=== PATIENT | female | born 1955 | race Caucasian/White ===

== ENCOUNTER 2021-02-19 22:16 | Inpatient (IN) | payer SELFPAY ==
[~2021-02-19] VITALS: Ht 162.6 cm; Wt 60.2 kg
[2021-02-19] MEDS ORDERED: TYLENOL EXTRA500 MG PO (22:42)
--- NOTE | 2021-02-20 02:35 | NUR ---
PT TO FLOOR VIA STRETCHER FROM ED WITH PSYCH SPECIALIST AT APPROX 0200. ALERT AND ORIENTED. PT UNABLE TO TRANSFER SELF DUE TO DIZZINESS AND NAUSEA. 3PA FROM STRETCHER TO BED. PT GIORGI WELL. ORDERS RECEIVED. VS AND ASSESSMENT COMPLETE. PRN FOR DIZZINESS ADMINISTERED PER EMAR WITH SIPS OF WATER. PT REPORTS NAUSEA BUT DOES NOT PRN N/V AT THIS TIME. IVF INFUSING ORDERED. PT ORIENTED TO ROOM AND NURSE CALL LIGHT. PT VERBALIZES UNDERSTANDING. DAUGHTER AT BEDSIDE. NO QUESTIONS OR CONCERNS AT THIS TIME. BED ALARM FOR SAFETY.
--- NOTE | 2021-02-20 03:32 | NUR ---
CALL LIGHT ANSWERED. PT REPORTS FEELING NAUSEOUS WITH "JITTERY LEGS" AND LEFT SIDE PAIN. VS WNL. PT DENIES CHEST PAIN OR SOB. REFUSES PRN FOR N/V. BELIEVES LEFT SIDE PAIN COULD BE FROM "DRY HEAVES". SBA TO BSC TO ATTEMPT TO VOID WITH NO RESULTS. PT DID HAVE [employer] BOWEL MOVEMENT AND SCANT AMOUNT EMESIS WHILE ON BSC. PT ABLE TO DO OWN OSCAR CARE. SBA BACK TO BED. GAIT WEAK AND UNSTEADY. ASSISTED PT TO REPOSITION IN BED WITH PILLOWS FOR COMFORT. NO FURTHER NEEDS AT THIS TIME. DAUGHTER REMAINS IN ROOM. BED ALARM FOR SAFETY. CALL LIGHT IN REACH.
--- NOTE | 2021-02-20 05:00 | NUR ---
PT RESTING ON RIGHT SIDE. EYES CLOSED. RESPIRATIONS EVEN. IVF INFUSING. BED ALARM FOR SAFETY. CALL LIGHT IN REACH.
--- NOTE | 2021-02-20 06:47 | NUR ---
PT RESTING WITH EYES CLOSED UPON ENTERING ROOM. AWAKENS EASILY. VS AND I&O OBTAINED. PT REPORTS "FEELING BETTER" AND WAS ABLE TO SLEEP FOR A FEW HOURS. SBA TO BSC TO ATTEMPT TO VOID WITH NO RESULTS. GAIT WEAK AND UNSTEADY. BACK TO BED. BLADDER SCANNED FOR APPROX 243 ML. PRN FOR NAUSEA ADMINISTERED PER EMAR. PT DENIES FURTHER NEEDS. CALL LIGHT IN REACH. BED ALARM FOR SAFETY.
--- NOTE | 2021-02-20 07:02 | NUR ---
CALL LIGHT ON. pt REPORTED "I THREW UP A LITTLE", IN TO ASSESS. pt HAD SCANT EMESIS, NOT ENOUGH TO MEASURE. OFFERED A WARM WET CLOTH, pt STATED "I'M DOING OKAY RIGHT NOW" NO FURTHER NEEDS. CALL LIGHT WITHIN REACH. PRIMARY RN UPDATED.
--- NOTE | 2021-02-20 07:15 | NUR ---
THIS RN RECEIVED REPORT FROM [facility]. PT RESTING AT THIS TIME. THIS RN WILL NEED TO HAVE PT VOID
--- NOTE | 2021-02-20 08:00 | NUR ---
THIS RN CALLED TO NOTIFY MD ABOUT THE COLOR IN TUBING. MD ASKED THIS RN TO MANUAL FLUSH CATHETER AND LOOK FOR CLOTS AND TO CONTINUE CBI AT THIS TIME- MD EXPECTS COLOR OF TUBING TO BE ABOUT A CRANBERRY IN COLOR.
--- NOTE | 2021-02-20 08:59 | NUR ---
PATIENT SITTING UP IN BED EATING BREAKFAST. VITALS CHARTED. PATIENT SAYS SHE IS NOT FEELING WELL ENOUGH TO GET UP TO CHAIR AT THIS TIME. CALL LIGHT IN REACH. BED ALARM ON. NO FURTHER NEEDS AT THIS TIME.
--- NOTE | 2021-02-20 09:30 | NUR ---
THIS RN IN PTS ROOM TO GIVE ALMA MEDS. PT ATTEMPTED TO EAT BUT NOT ABLE TO GET MUCH DOWN. PT STATES THAT SHE IS NAUSEOUS BUT DOES NOT WANT ANY MEDS FOR NAUSEA AT THIS TIME. THIS RN ASSISTED TO TO THE BEDSIDE COMMODE TO HELP HER PEE. PT WOBBLY GETTING TO COMMODE BUT WAS ABLE TO VOID 250ML AND PASS GAS. PT STATES THAT SHE IS DIZZY WHEN GETTING BACK TO BED, THIS RN TO PRVIDE PT WITH MED. IN ROOM
--- NOTE | 2021-02-20 09:40 | NUR ---
Spoke with Sailaja by phone as she is ill with covid. She states she lives in [place] in a 1 story home. She lives with her friend, Son. Her son lives nearby and will assist her. She has a walker and a cane she does not use. Pt states she has never applied for medicare or SS. She was given paperwork and her daughter is assisting to apply for Medicare. Pt states she has been very ill and is tired. She states she has not a Dr. in years. She would like a Dr. [facility] as she brings a friend here. Will check for appts to [facility].
--- NOTE | 2021-02-20 10:15 | NUR ---
THIS RN IN PTS ROOM TO GIVE MORNING MEDS. THIS RN NOTED THAT PTS COLOR IN TUBING WAS LIGHT CRANBERRY COLOR WITH NO CLOTS NOTED. PT DENIES PAIN. THIS RN DISCUSSED MEDS WITH PTS SON WHO TRANSLATED TO PT. NO OTHER NEEDS STATED.
--- NOTE | 2021-02-20 11:00 | NUR ---
THIS RN IN PTS ROOM TO GIVE PT ANOTHER BOLUS OF FLUID. PT STATES THAT SHE IS "QUEASY" BUT DOES NOT WANT ANY MEDS AT THIS TIME.
--- NOTE | 2021-02-20 12:15 | NUR ---
this rn to check on pt. pt appears to be resting comfortably at this time
--- NOTE | 2021-02-20 13:30 | NUR ---
this rn in pts room to give pt prn nausea meds. pt laying in bed and appears to be resting comfortably. pt states that she is felling "queasy" but it is kind of tolerable- pt is now willing to try an antinausea med- compazine. this rn then to do orthostatics- see vitals. pt then back to bed with herb from physical therapy- pt required 2 per assist back to bed after sitting on commode and unable to void.
--- NOTE | 2021-02-20 14:00 | NUR ---
this rn still in room. pt now vomiting- vomited 225ml. this rn to give pt 12.5mg phenergan. pt stopped heaving and is now very drowsy. herb from physcial therapy to come back. due to pt unable to void this rn bladder scanned pt. >477ml in bladder at this time.
--- NOTE | 2021-02-20 14:17 | NUR ---
DUE TO PRECAUTIONS, I AM UNABLE TO VISIT PT IN PERSON. WILL BE AVAILABLE TO CARE FOR HER NEEDED
--- NOTE | 2021-02-20 15:15 | NUR ---
THIS RN ROOM WITH 3 [facility] NURSING STUDENTS TO STRAIGHT CATH PT. TARA [facility] ALUMNI RELATIONS COORDINATOR ABLE TO USE SERILE TECHNIQUE UNDER SUPERVISION OF THIS RN. ABLE TO GET 500ML OUT OF BLADDER. PT TOELRATED WELL.
--- NOTE | 2021-02-20 16:11 | NUR ---
Spoke with pt from [facility]. Pt scheduled with Dr. Grosmsan on Mar 05 at 13:30.
--- NOTE | 2021-02-20 17:13 | NUR ---
PATIENT UP TO BSC AND BACK TO BED, 1PA. VITALS AND I&O'S CHARTED. HIGH BLOOD PRESSURE, RN NOTIFIED. CALL LIGHT IN REACH. NO FURTHER NEEDS AT THIS TIME.
--- NOTE | 2021-02-20 17:30 | NUR ---
[facility] PT STATES THAT SO FAR HER NAUSEA IS UNDER CONTROL BUT IS STILL DIZZY.
--- NOTE | 2021-02-20 19:21 | NUR ---
PT LAYING IN BED WITH EYES OPEN, NO NEEDS. CALL LIGHT IN REACH.
--- NOTE | 2021-02-20 22:00 | EKG ---
[facility] [address] [facility] [place] [address] Signed Sinus bradycardia Moderate voltage criteria for LVH, may be normal variant ( Sokolow-Pope , [place] product ) T wave abnormality, consider inferior ischemia Abnormal ECG No previous ECGs available Confirmed by LISA JOHNSON DO ([id number]) on 02/20/2021 9:59:59 PM Electronically Signed By: LISA JOHNSON DO 02/[id number] PATIENT NAME: ITZELBIB DANNY Electrocardiogram DATE OF : 51 PHYSICIAN: LISA JOHNSON DO REPORT #: [id number] REPORT IS CONFIDENTIAL AND NOT TO BE RELEASED WITHOUT AUTHORIZATION
--- NOTE | 2021-02-20 22:23 | NUR ---
IN TO SEE PT. SCHEDULED MEDICATIONS GIVEN. ASSISTED PT TO BSC. FRESH WATER PROVIDED, PT IN BED. ALERT AND ORIETNED X 4. VS OBTAINED. I AND O'S COMPLETED. ASSESMENT COMPLETED. NO OTHER NEEDS AT THIS TIME. CALL LIGHT IN REACH.
--- NOTE | 2021-02-20 23:45 | NUR ---
WENT IN TO THE ROOM AND V/S TAKEN PER PRIMARY RN SHRAVAN AND CHARTED BY HARSH COHEN. 2 PILLOWS PROVIDED. NO OTHER NEEDS AT THIS TIME.
--- NOTE | 2021-02-21 00:58 | NUR ---
PT RESTING WITH EYES CLOSED. EQUAL CHEST RISE AND FALL. TELE HR 57. CALL LIGHT IN REACH.
--- NOTE | 2021-02-21 02:07 | NUR ---
IN TO SEE PT. VSS OBTAINED. PT DENIES PT. P T RESTING WITH EYES CLOSED. NO OTHER NEEDS. CALL LIGHT IN REACH.
--- NOTE | 2021-02-21 03:15 | NUR ---
IN TO SEE PT. PT RESTING WITH EYES CLOSED. HR 70 PER MONITOR. CALL LIGHT IN REACH.
--- NOTE | 2021-02-21 05:35 | NUR ---
IN TO SEE PT. PT RESTING WITH EYES CLOSED. EASILY WAKES BY VOICE. VSS COMPLETED. ASSITED PT UP TO BSC. PT CONTINUES TO HAVE C/O DIZZINESS WITH ACTIVITY AND AT REST WITH SOME IMPROVMENT. VSS COMPLETED. HYDRALAZINE GIVEN PER ORDER. I AND O'S COMPLETED. ASSITED PT BACK TO BED. ASSESSMENT COMPLETED. NO OTHER NEEDS. CALL LIGHT IN REACH.
--- NOTE | 2021-02-21 06:25 | NUR ---
ALERT AND ORIENTED X 3. REG DIET. RA. NO COUGH NOTED. COVID PERCAUTIONS. 1 PA TO BSC. PT, TELE #1. DIZZINESS. ELEVATED SBP GREATER THAN 185 PRN MEDICATION GIVEN PER ORDER X 2, FLUIDS INFUSING, AM LABS. VOIDING QS.
--- NOTE | 2021-02-21 07:30 | NUR ---
Shift report received from HARSH Porter/Deisi pt resting safely in bed w/ call light in reach, no needs at this time
--- NOTE | 2021-02-21 10:00 | NUR ---
Pt sitting up in bed safely w/ call light in reach. Morning assesment complete, scheduled meds given, and a new bag of IV fluids hung and infusing per provider order. Pt c/o dizziness/nausea, PRN meds given per request. Orthostatic BP completed, no further needs at this time
--- NOTE | 2021-02-21 10:45 | NUR ---
Pt sleeping and not awakened. Per 829 meeting no plan for dc today.
--- NOTE | 2021-02-21 11:15 | NUR ---
PT IS STILL SUFFERING WITH MOMENTS OF VERTIGO AND IS ALSO COVID POSITIVE. PRECAUTIONS HAVE KEPT ME FROM VISITING IN PERSON, HARSH MARTINEZ WILL INFORM PT I AM AVAILABLE BY PHONE IF NEEDED
--- NOTE | 2021-02-21 12:00 | NUR ---
Pt called for assistance, SBA to BSC, pt voided, and now back in bed sitting up safely w/ call light in reach, eating lunch, no further needs at this time
--- NOTE | 2021-02-21 14:00 | NUR ---
Pt sitting up in bed w/ call light in reach, scheduled meds given per provider order, pt denies any needs at this time
[2021-02-21] MEDS ORDERED: IBUPROFEN200 MG PO (14:43)
--- NOTE | 2021-02-21 14:44 | NUR ---
MED REC COMPLETED BY PHARMACY
--- NOTE | 2021-02-21 14:58 | NUR ---
PT RESTING IN BED. RN ANASTACIO AWARE OF HIGH BP. CALL LIGHT WITHIN REACH, NO FURTHER NEEDS AT THIS TIME.
--- NOTE | 2021-02-21 15:00 | NUR ---
STEAMER GUM CANDY reported pt's BP elevated, PRN medication given per provider order will recheck BP in an hour
--- NOTE | 2021-02-21 16:05 | NUR ---
BP recehcked still hypertensive, provider notified, new orders for BP meds. Pt sitting up in bed safely w/ call light in reach, denies any needs at this time
--- NOTE | 2021-02-21 18:00 | NUR ---
Pt sitting up in bed safely w/ call light in reach, pt denies any needs at this time.
--- NOTE | 2021-02-21 18:53 | NUR ---
PT SLEEPING IN BED. CALL LIGHT WITHIN REACH, NO FURTHER NEEDS AT THIS TIME.
--- NOTE | 2021-02-21 19:30 | NUR ---
IN TO SEE PT. PT AWAKE AND ALERT IN BED. C/O 5/10 PAIN TO RIGHT SHOULDER. NO OTHER NEEDS AT THIS TIME. CALL LIGHT IN REACH.
--- NOTE | 2021-02-21 20:10 | NUR ---
IN TO ASSIST PT TO THE BSC, I&Os DONE, PT ASKING ABOUT MEDS FOR DIZZYNESS, RN INFORMED, NO FURTHER NEEDS
--- NOTE | 2021-02-21 20:45 | NUR ---
NEW ORDER RECIVED FROM MD. VERIFIED ORDER USING VORB METHOD.
--- NOTE | 2021-02-21 22:11 | NUR ---
VS AND I AND O'S COMPLERTED. ASSITED PT TO BSC AND BACK TO BED. SCHAED MEDICATIONS GIVEN. PT RENNY C/O NAUSEA, PRN PHENAGREN GIVEN PER ORDER. PT C/O CONGESTION, PRN SUDEFED GIVE, AND PAIN REPORT BY PT 06/19 TO RIGHT SHOULDER, PRN TYLENOL GIVEN PER ORDER. NO OTHER NEEDS. CALL LIGHT IN REACH.
--- NOTE | 2021-02-21 23:00 | NUR ---
UPDATE PROVIDED TO FAMILY.
--- NOTE | 2021-02-21 23:16 | NUR ---
ASSISTED PT TO BSC, 1PA FWW. PT C/O DIZZINESS WHILE STANDING AND SITTING, PT PROVIDED SELF OSCAR-CARE, WASHED HANDS WITH SOAPY WASH CLOTH. PT BACK IN BED, CALL LIGHT WITHIN REACH. PT VOIDED 800 CC OF URINE.
--- NOTE | 2021-02-21 23:40 | NUR ---
IN TO SEE PT, PT STATES " NAUSEA IS IMPROVING." NO NEEDS AT THIS TIME. CALL LIGHT IN REACH.
--- NOTE | 2021-02-22 02:31 | NUR ---
PT SLEEPING WITH EYES CLOSED, HR 62 PER MONITOR. NO NEEDS, CALL LIGHT IN REACH.
--- NOTE | 2021-02-22 04:52 | NUR ---
REG DIET. RA. IVF INFUSING. 1PA BSC. NAUSEA, PRN MEDICATION GIVEN. WORKING WITH PT. TELE 1 HR 60'S. PRN MEDICATION FOR DIZINESS. A AND O X 4.
--- NOTE | 2021-02-22 05:49 | NUR ---
AISSITED PT TO BSC AND BACK TO BED. PT WITH C/O NAUSEA, PRN COMPAZINE GIVE ORDERED. PAT WITH GENERALIZED PAIN 08/10, PRN TYLENOL GIVEN PER ORDER. I AND O'S AND VSS COMPLETED. FRESH ICE WATER PROVIDED. NO OTHER NEEDS, CALL LIGHT IN REACH.
--- NOTE | 2021-02-22 08:30 | NUR ---
REPORT RECEIVED FROM NIGHT RN AND PT. CARE RESUMED. PT. IS ALERT AND ORIENTED TO ALL. SHE DENIES PAIN OR NAUSEA. PT. IV SITE WNL AND FLUSHES WELL. REPORTS SHE WAS NOT DIZZY WHEN SITTING UP. LUNGS DIM. IN RLL. SHE IS ON R.A. AND O2 SAT IS 95%. DISCUSSED MEDS, SAFETY AND POC. LEFT RESTING WITH CALL LIGHT IN REACH.
--- NOTE | 2021-02-22 10:50 | NUR ---
Feeling better, but has dizzy episodes. Awaiting MRI.
--- NOTE | 2021-02-22 11:11 | NUR ---
ROUNDING ON PT. SHE REPORTS MODERATE DIZZINESS WHEN CHANGING POSITION. DENIES NEEDS AT THIS TIME.
--- NOTE | 2021-02-22 13:16 | NUR ---
PT USED CALL LIGHT APPROPRIATELY FOR ASSISTANCE TO BSC. 1PA TO BSC AND VOIDED. PT. REPORTS DIZZINESS AT EOB. LEFT RESTING WITH CALL LIGHT IN REACH.
--- NOTE | 2021-02-22 14:26 | NUR ---
PT SCHEDULED TO HAVE MRI TODAY, STILL ON PRECAUTIONS. WILL FOLLOW
--- NOTE | 2021-02-22 19:42 | NUR ---
IN TO ASSIST PT WITH BSC NEEDS, PT BACK TO BED, NO FURTHEN NEEDS
--- NOTE | 2021-02-22 22:05 | NUR ---
IN BED, C/O LIGHHEADNESS AND DIZZINESS WHEN MOVING. SL PATENT. IN BED, DENIES CP, TELE#[address]
--- NOTE | 2021-02-22 22:12 | NUR ---
UP TO BSC. VOIDED.1PA/ C/O DIZZINESS, BACK TOP BED, TOLERATED FAIR. MEDICATED TYLENOL AND OXYCONTIN OPER GENERALIZED PAIN. COOP WITH ASSESSMENT. ON R.A AIR. LUNGS CRACKLES AT BASES. NO SOB. ON REPIRATORY ISOLATION. TOLERATING LIQUIDS WELL. NO C/O CP . TELE#[address]
--- NOTE | 2021-02-22 23:13 | NUR ---
RESP ISOLATION, ON ROOM AIR, HOB ELEVATED, EYES CLOSED, NO DISTRESS, TELE#[address] SR AT THIS TIME
--- NOTE | 2021-02-23 02:53 | NUR ---
resting, no distress, eyes closed, tele/cpox #1 sats 94% room air, Sinus Rhythm. call light and fluids at bedside, on resp isolation.
--- NOTE | 2021-02-23 04:27 | NUR ---
Pt on respiratory isolation. On room air. tele#1 SR/SVR, denies CP,SOB, CONTINUES TO C/O DIZZINESS AND LIGHTHEADNESS WITH MOVEMENT OR WHEN UP TO BSC. TOLERATES WELL, WAS MEDICATED X1 PER H/A WITH GOOD PAIN RELIEF. NO EMESIS. HAS VOIDED qs, TOLERATING FLUIDS AND DIET, SL PATENT. FLUIDS AND CALL LIGHT AT BEDSIDE
--- NOTE | 2021-02-23 05:46 | NUR ---
UP TO BSC, 1PA, VOIDED, BACK TO BED. C/O PAIN8./10 AND FEELING LIGHTHEADED WITH MOVEMENT. MEDICATED WITH TYLENOL 650MG AND OXYCODONE 5MG PO. HOB ELEVATYED, ON ROOM AIR. TOLERATING LIQUIDS WELL, CALL LIGHT AT HANDS REACH
--- NOTE | 2021-02-23 09:36 | NUR ---
PT UP TO BATHROOM WITH ONE PERSON ASSIST AND 4WW. NOW UP IN CHAIR. CALL LIGHT WITHIN REACH. AND VISIBLE FROM NURSES STATION.
--- NOTE | 2021-02-23 14:11 | NUR ---
PT ABLE TO COMPLETE ORTHOSTATIC VITALS THAT WERE NEGATIVE. SHE REPORTS NAUSEA AND WEAK LEGS WITH STANDING. REFUSES ANTIEMETIC MEDS AT THIS TIME. BROUGHT FRESH WATER AND WET CLOTH. LEFT RESTING WITH CALL LIGHT IN REACH.
--- NOTE | 2021-02-23 19:34 | NUR ---
Continues on Respiratory Isolation, eyes closed, no distress, call light and fluids at bedside
--- NOTE | 2021-02-23 21:09 | NUR ---
pt on respiratory isolation, hob elevated, on room air. lungs clear, dim at bases. no sob with exertion. tele/cpox#1 in p[lace, sats 96%. no bm today. sl patent. tolerating fluids, no emesis, still c/o lighheadness and generalized pain. medicated with oxycodone 5mg and 2 tylenol 650mg. fresh fluids and puding given on requests. cooperative with assessment. denies needing to void at this time, will ask again in one -two hours
--- NOTE | 2021-02-24 01:04 | NUR ---
resting, eyes closed, no distress, on room air, tele#[address] SR, sats 96% room air. call light and fludis at bedside
--- NOTE | 2021-02-24 03:44 | NUR ---
Resting, eyes closed, no distress, on room air. cont on resp isolation precautions. call light and fluids at bedside
--- NOTE | 2021-02-24 05:37 | NUR ---
On room air. lung dim at bases, fine crackles, denies cough at this time, coantinues cintia/o lightheadness and dizzines with movement but improved. was medicated with Oxycodone, Tylenol per pain and with Melatonin per insomnia, very effective, has slept all this shift. Up to BSC voiding dark yellow urine. Back to be, HOB elevated, tolerating liquids well, no emesis, sl patent. Cont on Respiratory isolation precautions.Tele#1 SR to eugenio, denies CP or SOB. cpox 96%.
--- NOTE | 2021-02-24 12:11 | NUR ---
REPORT RECEIVED FROM NIGHT RN AND PT. CARE RESUMED. PT. IS ALERT AND ORIENTED TO ALL. SHE C/O NAUSEA BUT HAS NOT VOMITED. ADMIN. NAUSEA MED. ON ROOM AIR AND 02 SAT IS 94%. IV SITE LEAKING AND PAINFUL AND REMOVED WITH CATH INTACT. PT. STATES SHE IS UNABLE TO STAND AND WILL TRY AGAIN LATER. DISCUSSED MEDS, POC AND SAFETY. LEFT RESTING WITH CALL LIGHT IN REACH.
[2021-02-24] MEDS ORDERED: LORAZEPAM1 MG PO (13:35)
[2021-02-24] MEDS ORDERED: MECLIZINE HCL12.5 MG PO (13:36)
[2021-02-24] MEDS ORDERED: PREDNISONE20 MG PO (13:37)
[2021-02-24] MEDS ORDERED: LISINOPRIL10 MG PO (13:49)
[2021-02-24] MEDS ORDERED: DOXAZOSIN MESYLA1 MG PO (13:49)
[2021-02-24] MEDS ORDERED: NICARDIPINE HCL20 MG PO (13:49)
--- NOTE | 2021-02-24 14:23 | NUR ---
PT. C/O OF NAUSEA. ADMIN NAUSEA MEDS AND BROUGHT FRESH WATER. P.T. IN TO WORK WITH PT. SHORTLY AFTER, P.T. REPORTS PT. VOMITED AFTER STANDING.
--- NOTE | 2021-02-24 16:36 | NUR ---
ALL DISCHARGE INSTRUCTIONS REVIEWED AND QUESTIONS ANSWERED. PT. ADMIN NICARDIPINE PRIOR TO DC. LEFT VIA WHEELCHAIR WITH ALL BELONGINGS. NO IV.
== END 2021-02-24 16:15 | disposition home or self-care (01) | DRG 304 ==
LOC: ED 22:16 → MS 22:18
PROVIDERS: ADMIT Student in an Organized Health Care Education/Training Program; ATTEND Student in an Organized Health Care Education/Training Program
PROC: 8E0ZXY6 Isolation (ICD-10-PCS; principal; 2021-02-20)
DX: I16.0 Hypertensive urgency (principal); U07.1 COVID-19; H83.09 Labyrinthitis, unspecified ear; H81.399 Other peripheral vertigo, unspecified ear; I10 Essential (primary) hypertension; Z90.49 Acquired absence of other specified parts of digestive tract
CPT/HCPCS: 70450; 71045; 80048; 81001; 83735; 84484; 85025; 93005; 93010; 96374; 96375; 96376; 97110; 97116; 97161; 97530; 99285-25; A9270; A9270-GY; C9803; J0360; J0780; J1650; J2405; J2550; J7121; J7512; U0003

== ENCOUNTER 2023-08-28 14:38 | Emergency (ER) | payer MEDICARE ==
[~2023-08-28] VITALS: Ht 162.6 cm; Wt 67.1 kg
[~2023-08-28 14:38] MED LIST: DOXAZOSIN MESYLA1 MG PO; IBUPROFEN200 MG PO; LISINOPRIL10 MG PO; LORAZEPAM1 MG PO; MECLIZINE HCL12.5 MG PO; NICARDIPINE HCL20 MG PO; PREDNISONE20 MG PO; TYLENOL EXTRA500 MG PO
[2023-08-28 16:22] LABS: BILIRUBIN, URINE NEGATIVE (negative); BLOOD/HGB, URINE MODERATE (Negative); KETONE, URINE TRACE (Negative); LEUK ESTERASE, URINE SMALL (negative); NITRITE, URINE POSITIVE (negative)
[2023-08-28 16:28] LABS: EPITHELIAL CELLS, URINE SQUAMOUS 1+ /lpf (0-1+)
[2023-08-28 16:29] LABS: BACTERIA, URINE 3+ /hpf (negative); CASTS, URINE NONE SEEN \\lpf; COLLECTION TYPE, URINE CLEAN CATCH; CRYSTALS, URINE NONE SEEN (0-1+); REFLEX CULTURE, URINE Yes (No); WHITE BLOOD CELLS, URINE >50 /HPF (0-5)
[2023-08-28] MEDS ORDERED: CEPHALEXIN500 M1 PO (17:25)
[2023-08-28] MEDS ORDERED: CEPHALEXIN MONOHYDRATE 500 MG CAP PO ONE (17:30)
[2023-08-28 17:35] VITALS: BP 140/68
== END 2023-08-28 17:35 | disposition home or self-care (01) ==
LOC: ED 14:38
PROVIDERS: Emergency Medicine
DX: N39.0 Urinary tract infection, site not specified (principal); Z79.52 Long term (current) use of systemic steroids; Z79.899 Other long term (current) drug therapy
CPT/HCPCS: 81001; 87088; A9270